=== PATIENT | female | born 1985 | race Caucasian/White ===

== ENCOUNTER → 2020-05-16 12:15 | Outpatient (ROUT) | payer OTHER, SELFPAY ==
[2020-05-16 12:29] LABS: Glucose 100 mg/dL (70-100)
== END ==
PROVIDERS: Visit Provider Nurse Practitioner Obstetrics & Gynecology
DX: Z34.90 Encounter for supervision of normal pregnancy, unspecified, unspecified trimester (principal); Z13.1 Encounter for screening for diabetes mellitus; Z3A.16 16 weeks gestation of pregnancy
CPT/HCPCS: 82947

== ENCOUNTER → 2020-10-03 11:47 | Outpatient (ROUT) | payer OTHER, SELFPAY | PROVIDERS: Visit Provider Nurse Practitioner Obstetrics & Gynecology | DX: Z34.90 Encounter for supervision of normal pregnancy, unspecified, unspecified trimester (principal); Z36.85 Encounter for antenatal screening for Streptococcus B | CPT/HCPCS: 87081 ==

== ENCOUNTER 2020-10-14 07:04 | Inpatient (IN) | payer OTHER, SELFPAY ==
--- NOTE | 2020-10-14 07:16 | P.HPOB_ITS ---
OB HPI Date/Time Date of admission: 10/14/20 Date Patient Seen: 10/14/20 Time Patient Seen: 07:15 History of Present Condition Chief complaint: EVAL OF LABOR : 1 Para: 0 Estimated Date of Delivery: 10/28/20 Estimated Gestational Age (weeks): 38.0 Narrative: Daxa Pulido is a 34 year old female @ 38wks by LMP and 9wk US who presented to [facility] ED for evaluation of labor. Awoke around 1am w/ regular contractions Q3-5 minutes that steadily progressed in intensity. While in the ED, contraction spaced to Q10 minutes. CE was about 4cm and helicopter transport was recommended by the ED MD. Upon arrival, contractions had returned to Q3-5 minutes and SROM, copious clear fluid @ 0720. History of Present care: good care, initiated at week # (9), number of visits (7) and pounds weight gain (21) Dating criteria: LMP confirmed by 1st trimester US Ultrasounds: normal mid trimester US Obstetrical complications: none Medical complications: none Preadmission Labs Blood type: A (+) positive -: Antibody screen: negative, Cystic fibrosis screen: negative, GBS status: negative, HBsAG: negative, HIV: negative, HSV 1: positive, HSV 2: negative and RPR/VDLR: negative -: Chlamydia screen: not detected and Gonorrhea screen: not detected -: Rubella: not immune HCT: 34.3 HCAB: negative Cell-free DNA: Negative-male Narrative: 2hr gtt: 65/155/113 Prior (ies) History: none Evaluation Evaluation Baseline heart rate: 120 Variability: Moderate (11-25) monitor accelerations: Present Monitor Decelerations: Absent Contraction Frequency (minutes): 4 Uterine Contraction Intensity: Mild Category of Tracing: Reactive Status: Category l Cervical dilation (cm): 4 Cervical effacement (%): 90 station: -2 Comments: gross SROM, clear PFSH Surgical History (Updated 10/14/20 @ 07:26 by Kyra Harmon CNM) H/O oral surgery Family History (Updated 10/14/20 @ 07:28 by Kyra Harmon CNM) Mother Cancer Father Diabetes mellitus Social History (Updated 10/14/20 @ 07:27 by Kyra Harmon CNM) marital status: details: FOB is new partner household members: significant other lives independently: Yes caregiver/support person: No education level: college Smoking Status: Never smoker Meds Home Medications and Allergies Home Medications Medication Instructions Recorded Confirmed Type Vitamin 1 PO 10/14/20 History Review of Systems Review of Systems ROS: Yes All systems reviewed with the patient and are negative except as otherwise documented Exam Vital Signs (past 8 hours): BP 103/77, HR 71bpm, T 36.3C Temporal Chest Chest: normal inspection of the chest Resp Effort & Inspection: normal respiratory effort Auscultation: clear to auscultation bilaterally Cardio Rate: regular rate Rhythm: regular rhythm Heart Sounds: S1 normal and S2 normal Presentation: vertex Objective Labs Result Diagrams: 10/14/20 10:01 Labs: SARS-CoV-2: negative from [facility] 1 hr prior to arrival Assessment and Plan Assessment and Plan Assessment and Plan narrative: A: AMA nullipara Approaching active labor SROM <1 hr without sx of infection No indication for GBS prophylaxis Cat I FHR P: Admit, routine orders, w/ T&S. Labor support PRN. Reassess after 2 hours of strong contractions. May switch to IA after 20 minutes of Cat I FHR
[2020-10-14 08:11] VITALS: BP 103/77
[2020-10-14 10:15] LABS: Add Manual Diff / Slide Review NO; Basophils Absolute Auto 100 /uL (0-100); Basophils Percent Auto 0.7 % (0-2); Eosinophils Absolute Auto 100 /uL (0-450); Eosinophils Percent Auto 0.9 % (2-4); Hematocrit 39.2 % (36-46); Hemoglobin 13.2 g/dL (12.0-16.0); Lymphocytes Absolute Auto 1600 /uL (1100-4500); Lymphocytes Percent Auto 19.8 % (25-40); Mean Corpuscular HGB Conc 33.7 % (30-36); Mean Corpuscular Hemoglobin 30.6 PG (26-34); Mean Corpuscular Volume 90.7 fL (80-100); Monocytes Absolute Auto 600 /uL (0-900); Neutrophils Absolute Auto 5800 /uL (1500-7000); Neutrophils Percent Auto 71.6 % (50-75); Platelet Count 67 X10^3/uL (150-400); Red Blood Cell Count 4.32 X10^6/uL (4.0-5.2); Red Cell Distribution Width 13.7 % (11.6-14.8); White Blood Cell Count 8.1 X10^3/uL (4.5-11.0)
--- NOTE | 2020-10-14 10:57 | PM.OBPNLAB ---
Date/Time Date Patient Seen: 10/14/20 Time Patient Seen: 10:58 Pain Control Pain control: tolerating well Comments: Breathing through regular contractions, planning to nap a little Pelvic Exam Dilation (cm): 4 Effacement (%): 90 station: -2 Comments: CE deferred until contractions are stronger Contractions Contractions on admission: regular Monitor mode: External Pitocin rate (mU/min): 0 Contraction duration (min): 3 Contraction pattern: Regular Contraction intensity: Moderate Status status: Category l Heart Rate Baseline: 130 Monitor Accelerations: Present Monitor Decelerations: Early Monitor Variability: Moderate Assessment and Plan Assessment: active labor Plan: continuous present management Comments: Labor support PRN. Reassess in 4 hours.
--- NOTE | 2020-10-14 15:37 | PM.OBPRVD ---
Labor & Delivery Delivery date: 10/14/20 Intrapartal Events: None Cervical ripening method: none Induction method: none Delivery monitor: external FHT and external uterine Route of delivery: L&D Laceration Description: Labial (left) Delivery repair: chromic (3.0) Estimated blood loss (mL): 100 Anesthesia Type: Other (NO2) Baby 1: Infant gender: Male Presentation: vertex Position: Right Occiput Anterior Placenta delivery description: Spontaneous Cord Vessel Description: 3 Vessels score (1 min): 7 score (5 min): 9 weight: 2.7 kg Narrative: Patient labored well in hands and knees position w/ NO2 for labor analgesia. Presumed complete with spontaneous urge to push. Maternal pushing efforts led to rapid descent of vertex with NSVB of a viable baby boy in JENNIFER position with no nuchal cord and easy delivery of the shoulders. FHTs were auscultated via doppler in the 60's immediatley prior to the . There was copious terminal meconium and baby required stimulation with Apgars of 7/9. Rancocas was passed through maternal legs and held by mother while they repositioned to lying in bed. After cessation of pulsation, the cord was double clamped and cut. Hospital cord blood hold sample was collected. Gentle cord tractions and single maternal push led to spontaneous, Schultze delivery of an apparently intact placenta, membranes and 3VC. Fundus was immediately firm and bleeding minimal. A shallow left labial laceration was repaired under 1% lidocaine local with 3.) chromic. QBL 100mL. Both mother and baby stable and skin to skin as I left the room. Plan for aftercare: Routine care
[2020-10-14] MEDS: KETOROLAC 30 MG/ML VIAL IV (18:47)
[2020-10-14] MEDS: DERMOPLAST SPRAY 20% 60 ML 1 SPRAY TOP (18:48)
[2020-10-15] MEDS: IBUPROFEN 600 MG TABLET PO ×2 (04:28→10:50)
--- NOTE | 2020-10-15 08:11 | PM.OBDS.1 ---
Discharge Providers Provider Date of admission: 10/14/20 07:04 Discharge Date: 10/15/20 Primary care physician: Kyra Harmon CNM Consults: 10/15/20 15:34 Consult to Inside Sales Territory Manager Routine Comment: Discharge provider: Kyra Harmon CNM Summary Discharge Diagnosis (1) First degree perineal laceration during delivery: Status: Acute Problem Details: Daxa is voiding, ambulating and independently. Tolerating general diet with pain well controlled w/ PO medication. Vaginal bleeding is light without clots. She has showered and is dressed in her own clothes. both parents are feeling ready for discharge to home today. Time Spent with Patient Time attestation: Total time spent providing and/or coordinating discharge services: Objective Labs Result Diagrams: 10/14/20 10:01 Labs: Laboratory Results - last 24 hr 10/14/20 10/14/20 10:01 10:01 WBC 8.1 RBC 4.32 Hgb 13.2 Hct 39.2 MCV 90.7 MCH 30.6 MCHC 33.7 RDW 13.7 Plt Count 67 L Neut % (Auto) 71.6 Lymph % (Auto) 19.8 L Jerome % (Auto) 7.0 Eos % (Auto) 0.9 L Baso % (Auto) 0.7 Neut # (Auto) 5800 Lymph # (Auto) 1600 Jerome # (Auto) 600 Eos # (Auto) 100 Baso # (Auto) 100 Blood Type A Positive Antibody Screen Negative Exam Vital Signs (past 8 hours): BP 116/71, HR 55/min, RR 17/min, T 98.5F Axillary Other: Fundus firm @ u-1, lochia scant, no clots, slight edema to perineum Discharge Plan Discharge Plan Patient Disposition: Home Discharge orders & Medications Prescriptions: New acetaminophen 325 mg Tablet 650 mg PO Q6HR PRN (Reason: Pain, Mild (1-3)) 14 Days Qty: 60 RF: 0 ibuprofen 600 mg Tablet 600 mg PO Q6HR PRN (Reason: Pain, Mild (1-3)) 14 Days Qty: 60 RF: 1 Continued Vitamin tablet 1 tab PO DAILY 365 Days Qty: 100 RF: 3 Follow up/Referrals: Kyra Harmon CNM [Primary Care Provider] - (Follow-up 7/1/21 @0900 by telehealth Follow-up 11/25/20 @1045 in office) Diet/Activity/Treatments Diet: Regular Activity: pelvic rest x 6 weeks Skin/Wound/Dressing Care Report to your healthcare provider any signs of infection, such as:: chills, fever, increased pain, unusual drainage and unusual redness Visit Report/Discharge Packet Instructions: DI for Depression Discharge Data Primary Care Provider: Kyra Harmon Attending Provider: Kyra Harmon
[2020-10-15 09:00] VITALS: BP 106/68; PULSE 83; RESP 16; TEMP 36.9
[2020-10-15] MEDS: MEASLES,MUMPS,RUBELLA VACC/PF 0.5 ML VIAL SUBCUT (10:48)
== END 2020-10-15 11:07 | disposition home or self-care (01) | DRG 807 ==
PROVIDERS: Admitting Provider Nurse Practitioner Obstetrics & Gynecology; PCP Nurse Practitioner Obstetrics & Gynecology; Referring Provider Nurse Practitioner Obstetrics & Gynecology; Visit Provider Nurse Practitioner Obstetrics & Gynecology
DX: O77.0 Labor and delivery complicated by meconium in amniotic fluid (principal); Z37.0 Single live birth; Z3A.38 38 weeks gestation of pregnancy; O70.0 First degree perineal laceration during delivery
CPT/HCPCS: 36415; 59050; 85025; 86850; 86900; 86901; G0378; G0379; J1885

== ENCOUNTER 2023-01-08 03:44 | Inpatient (IN) | payer OTHER, MEDICAID, SELFPAY ==
--- NOTE | 2023-01-08 04:15 | PM.OBHP.1 ---
OB HPI Date/Time Date of admission: 01/08/23 History of Present Condition Chief complaint: Labor : 2 Para: 1 Estimated Date of Delivery: 01/13/23 Estimated Gestational Age (weeks): 39.2 Narrative: Daxa Pulido is a 37 year old female @ [id number] by sure LMP concordant with 10 wk ultrasound who presents for evaluation of labor. Awoke to a gush of clear fluid at 0020 this morning, followed by contractions that have steadily progressed in frequency and intensity. Contractions are now moderate and occurring every 2-3 minutes. +FM. Has continued to leak clear fluid. No vaginal bleeding. Desires low intervention , declines IV access, interested in nitrous oxide. Partner is present and supportive. Uncomplicated care with CNMs. History of Present care: good care, initiated at week # (10), number of visits (8) and pounds weight gain (7) Dating criteria: LMP confirmed by 1st trimester US Ultrasounds: normal 1st trimester US and normal mid trimester US Obstetrical complications: other (anemia-resolved at 35wks) Medical complications: none Preadmission Labs Blood type: A (+) positive -: Antibody screen: negative, GBS status: negative, HBsAG: negative, HIV: negative and RPR/VDLR: negative -: Chlamydia screen: not detected and Gonorrhea screen: not detected -: Rubella: immune and Varicella: immune HCT: 34.2 HCAB: negative Cell-free DNA: Negative 1 hr GTT: 115 Prior (ies) History: 10/14/2020: NSVB@38.0wks, male, NO2, no complications Evaluation Evaluation Baseline heart rate: 135 Variability: Moderate (11-25) Monitor Decelerations: Variable Contraction Frequency (minutes): 3 Uterine Contraction Intensity: Moderate Status: Category ll Dilation (cm): 4 Effacement (%): 80 Dilation: 3-4 cm Effacement: >/=80% station: -3 Position of cervix: posterior Consistency: soft Fabian score: 7 Comments: leaking clear fluid PFSH Medical History Anxiety Migraine Surgical History H/O oral surgery Family History Mother Cancer Father Diabetes mellitus Social History marital status: details: FOB is new partner household members: significant other lives independently: Yes caregiver/support person: No education level: college Smoking Status: Never smoker Meds Home Medications and Allergies Home Medications Medication Instructions Recorded Confirmed Type Vitamin 1 tab PO DAILY 365 days #100 tabs 10/15/20 01/08/23 Rx ibuprofen 600 mg tablet 600 mg PO Q6HR PRN Pain, Mild 10/15/20 Rx (1-3) 14 days #60 tabs Allergies Allergy/AdvReac Type Severity Reaction Status Date / Time No Known Drug Allergies Allergy Verified 10/15/20 00:19 Review of Systems Review of Systems ROS: Yes All systems reviewed with the patient and are negative except as otherwise documented OB Exam Vital signs Blood Pressure: 117/72 Pulse Rate: 80 Temperature: 97.9 F Resp Effort & Inspection: normal respiratory effort and able to speak in complete sentences Auscultation: clear to auscultation bilaterally Cardio Rate: regular rate Rhythm: regular rhythm Heart Sounds: S1 normal and S2 normal Presentation: vertex Assessment and Plan Assessment and Plan Assessment and Plan narrative: A: Term primipara AMA Early labor SROM x 4 hour without sx of infection GBS prophylaxis NOT indicated Cat II FHR P: Admit, routine orders. May switch to intermittent auscultation. NO2 when requested. Labor support PRN. Reassess in 4 hours or sooner, PRN.
[2023-01-08 04:35] VITALS: BP 117/72
[2023-01-08] MEDS: ONDANSETRON 4 MG ODT SL (04:35)
[2023-01-08 04:41] LABS: Add Manual Diff / Slide Review NO; Basophils Absolute Auto 0 /uL (0-100); Basophils Percent Auto 0.3 % (0-2); Eosinophils Absolute Auto 300 /uL (0-450); Eosinophils Percent Auto 2.5 % (2-4); Hematocrit 36.7 % (36-46); Hemoglobin 12.3 g/dL (12.0-16.0); Lymphocytes Absolute Auto 1900 /uL (1100-4500); Lymphocytes Percent Auto 18.1 % (25-40); Mean Corpuscular HGB Conc 33.5 % (30-36); Mean Corpuscular Hemoglobin 28.7 PG (26-34); Mean Corpuscular Volume 85.8 fL (80-100); Monocytes Absolute Auto 900 /uL (0-900); Monocytes Percent Auto 8.8 % (3-14); Neutrophils Absolute Auto 7400 /uL (1500-7000); Neutrophils Percent Auto 70.3 % (50-75); Platelet Count 224 X10^3/uL (150-400); Red Blood Cell Count 4.28 X10^6/uL (4.0-5.2); Red Cell Distribution Width 17.2 % (11.6-14.8); White Blood Cell Count 10.5 X10^3/uL (4.5-11.0)
[2023-01-08 04:46] VITALS: BP 117/72; PULSE 80
[2023-01-08 04:50] VITALS: TEMP 36.6
[2023-01-08] MEDS: OXYTOCIN 10 UNIT/ML VIAL IM (07:45)
--- NOTE | 2023-01-08 08:34 | PM.OBPRVD ---
Labor & Delivery Delivery date: 01/08/23 Intrapartal Events: Bleeding Delivery monitor: external FHT (intermittent auscultation ) Route of delivery: Episiotomy description: None L&D Laceration Description: Perineal - 1st Degree Delivery repair: chromic Estimated blood loss (mL): 500 Anesthesia Type: Other (nitrous oxide) Narrative: Daxa progressed well in labor without augmentation, using nitrous oxide for anesthesia. Active bright red bleeding was noted shortly prior to second stage with reassuring heart tones. She began pushing in hands and knees spontaneously and was presumed complete, rectal bulging seen shortly after. NSVB of vigorous baby boy in NATE position at 0742 with no nuchal cord and easy delivery of shoulders. CNM, SNM, and FOB Stone all hands on for . Bleeding noted at time of delivery, 10U Pitocin IM given. passed between Daxa's legs and when she was ready, she was helped to her side and placed skin to skin. Bleeding minimal following position change to reclined. Cord double clamped and cut by FOB Stone after it stopped pulsing. Spontaneous Schultze delivery of apparently intact placenta, membranes and 3 vessel cord. Fundus immediately firm at U-1, light bleeding. 1st degree perineal tear repaired with 3-0 chromic in the usual fashion under 1% lidocaine local. EBL, because of fluid mixed with blood, at 500mL. Mom and baby both stable skin to skin and as I left the room. Baby 1: gender: Male Presentation: vertex Position: Left Occiput Anterior Placenta delivery description: Spontaneous Cord Vessel Description: 3 Vessels score (1 min): 9 score (5 min): 9 weight: 3.735 kg Plan for aftercare: Routine care
[2023-01-08] MEDS: ACETAMINOPHEN 325 MG TABLET 650 MG PO ×3 (08:56→23:58)
[2023-01-08] MEDS: DERMOPLAST SPRAY 20% 60 ML 1 SPRAY TOP (08:58)
[2023-01-08] MEDS: IBUPROFEN 600 MG TABLET PO ×3 (08:58→23:59)
[2023-01-08] MEDS: DOCUSATE 100 MG CAPSULE PO (15:14)
[2023-01-08] MEDS: OXYCODONE IR 5 MG TABLET PO (19:32)
[2023-01-08] MEDS: LANOLIN OINT 7 GM 1 APPLIC TOP (23:59)
[2023-01-09] MEDS: IBUPROFEN 600 MG TABLET PO (06:13)
[2023-01-09] MEDS: ACETAMINOPHEN 325 MG TABLET 650 MG PO (06:13)
[2023-01-09] MEDS: OXYCODONE IR 5 MG TABLET PO (07:38)
--- NOTE | 2023-01-09 08:42 | P.DS_ITS ---
Discharge Providers Provider Date of admission: 01/08/23 03:44 Discharge Date: 01/09/23 Primary care physician: Kyra Blank CNM Consults: 01/09/23 08:33 Consult to Athletic Instructor Routine Comment: Discharge provider: Kyra Blank CNM Summary Hospital Course Date Patient Seen: 01/09/23 Time Patient Seen: 08:42 Diagnoses: O09.523, o70.0 Hospital Course: PPD1: NSVB with 1st degree laceration, repaired. Ambulating, voiding and independently. Passing gas and tolerating a normal diet. Bleeding is light without clots. Pain is well controlled with PO meds, utilizing oxycodone sparingly. Supportive partner at bedside, both parents are ready to go home this morning. Peripartum Data Delivery Method: Natural Vaginal Laceration Description: Perineal - 1st Degree Episiotomy description: None [place] 1: Gender: Male Disposition of : home Discharge Diagnosis (1) First degree perineal laceration during delivery: Status: Acute Problem Details: Routine course Time Spent with Patient Time attestation: Total time spent providing and/or coordinating discharge services: Objective Labs 01/08/23 04:25 Exam Vital Signs (past 8 hours): BP: 98/65 mmHg HR: 72 bpm RR: 17/min T: 98.0 F Sp02: 98% Other: Fundus firm, midline, at U Lochia: light rubra Perineum: well approximated, minimal edema Discharge Plan Discharge Plan Patient Disposition: Home Discharge orders & Medications Prescriptions: New oxycodone 5 mg Tablet 5 mg PO Q4HR PRN (Reason: Pain, Moderate (4-6)) 5 Days Qty: 10 0RF Continued ibuprofen 600 mg Tablet 600 mg PO Q6HR PRN (Reason: Pain, Mild (1-3)) 14 Days Qty: 60 1RF Vitamin tablet 1 tab PO DAILY 365 Days Qty: 100 3RF Follow up/Referrals: Kyra Blank CNM [Primary Care Provider] - 2 Weeks (2 week PHONE CALL: Saturday01/21/23 at 10:45am 6 week IN PERSON: Saturday02/19/23 at 10:30 ) Diet/Activity/Treatments Diet: Diet as Tolerated and Regular Diet comment: Hydration and high fiber Activity: Rest in/around bed for 2 weeks, pelvic rest for 6 weeks Cold/Heat Therapy: To your comfort Skin/Wound/Dressing Care Report to your healthcare provider any signs of infection, such as:: chills, fever, increased pain, unusual drainage and unusual redness Visit Report/Discharge Packet Instructions: DI for Depression Stand Alone Forms: Patient Portal/API Discharge Data Primary Care Provider: Kyra Blank
[2023-01-09 10:05] VITALS: BP 98/65; PULSE 72; RESP 16; TEMP 36.6
== END 2023-01-09 11:10 | disposition home or self-care (01) | DRG 807 ==
PROVIDERS: Admitting Provider Nurse Practitioner Obstetrics & Gynecology; PCP Nurse Practitioner Obstetrics & Gynecology; Referring Provider Nurse Practitioner Obstetrics & Gynecology; Visit Provider Nurse Practitioner Obstetrics & Gynecology
DX: O76 Abnormality in fetal heart rate and rhythm complicating labor and delivery (principal); Z37.0 Single live birth; O70.0 First degree perineal laceration during delivery; Z3A.39 39 weeks gestation of pregnancy
CPT/HCPCS: 59050; 85025; 86850; 86900; 86901; G0379; J2590